=== PATIENT | female | born 1960 | race Caucasian/White ===

== ENCOUNTER 2025-02-25 07:06 | Emergency (ER) | payer MEDICAID, SELFPAY ==
--- NOTE | 2025-02-25 07:12 | EKG_ITS ---
[facility] Test Date: 2025-02-25 Pat Name: BRYCE TOMLINSON Department: Room: - Gender: Female Pacs Specialist: : 1960 Requested By: Anam Thomas (JANET) Order Number: [id number] Reading MD: Anam Thomas (AGRICULTURAL TECHNICIAN) Measurements Intervals [place] Rate: 82 P: VA: QRS: -73 QRSD: 114 T: 26 QT: 363 QTc: 424 Interpretive Statements SUPRAVENTRICULAR RHYTHM LEFT ANTERIOR FASCICULAR BLOCK [QRS AXIS <= -45, QR IN I, RS IN II] VOLTAGE CRITERIA FOR LVH [MEETS CRITERIA IN ONE OF: R(aVL), S(V1), R(V5), R(V5/V6)+S(V1)] POSSIBLE ANTEROSEPTAL MYOCARDIAL INFARCTION , OF INDETERMINATE AGE [30 ms Q WAVE IN V1-V4] Compared to ECG 08/23/2022 18:45:32 Supraventricular rhythm now present Sinus rhythm no longer present First degree AV block no longer present Myocardial infarct finding still present /store/S0/[id number].pdf
[2025-02-25 07:21] VITALS: BP 124/73; PULSE 84; RESP 18; TEMP 36.6; O2SAT 99; BMI 25.0
--- NOTE | 2025-02-25 07:32 | XR_ITS ---
EXAMINATION: AP chest single view TECHNIQUE: AP portable upright chest single view Date and time: February 25, 2025, 0754 hours INDICATIONS: Chest pain dizziness diaphoresis today FINDINGS: Normal heart size Mild ectasia thoracic aorta. No pneumonia or pulmonary edema. Prominent osteopenia IMPRESSION: No pneumonia or pulmonary edema
[2025-02-25 07:50] VITALS: PULSE 70
[2025-02-25 08:10] LABS: Basophils # (Auto) 0.0 Thou/mm3 (0.0-0.2); Basophils % (Auto) 0 % (0-2.5); Eosinophils # (Auto) 0.1 Thou/mm3 (0.0-0.5); Eosinophils % (Auto) 2 % (0-10); Hematocrit 51.4 % (36.0-46.0); Hemoglobin 17.8 g/dL (12.0-16.0); Immature Granulocytes Auto 0.02 Thou/mm3 (0.00-0.00); Lymphocytes # (Auto) 1.7 Thou/mm3 (1.0-4.8); Lymphocytes % (Auto) 26 % (10-50); Mean Corpuscular HGB Conc 34.6 g/dl (31.0-37.0); Mean Corpuscular Hemoglobin 30.6 pg (25.0-35.0); Mean Corpuscular Volume 89 fL (80-100); Monocytes # (Auto) 0.4 Thou/mm3 (0.0-0.8); Monocytes % (Auto) 5 % (0-12); Neutrophils # (Auto) 4.5 Thou/mm3 (1.8-7.7); Neutrophils % (Auto) 67 % (37-80); Nucleated Red Blood Cell # 0.00 Thou/mm3 (0.00-0.00); Nucleated Red Blood Cell % 0 /100 WBC (0); Platelet Count 177 Thou/mm3 (140-440); RDW Standard Deviation 39.8 fL (36.4-46.3); Red Blood Count 5.81 Miln/mm3 (4.00-5.20); White Blood Count 6.7 Thou/mm3 (3.6-11.0)
[2025-02-25 09:08] LABS: INR 1.0 (0.9-1.3); Partial Thromboplastin Time 28.8 Seconds (22.0-36.0); Prothrombin Time 10.7 Seconds (9.0-12.2)
[2025-02-25 09:26] LABS: B-Type Natriuretic Peptide 46 pg/mL (0-100)
[2025-02-25 09:27] LABS: Alanine Aminotransferase 36 U/L (10-49); Albumin, Serum 4.8 gm/dL (3.4-4.8); Albumin/Globulin Ratio 1.5 (1.2-2.2); Alkaline Phosphatase 79 U/L (46-116); Anion Gap 11 (7-16); Aspartate Amino Transferase 34 U/L (0-34); BUN/Creatinine Ratio 11 Ratio (12-20); Bilirubin,Total 0.6 mg/dL (0.3-1.2); Blood Urea Nitrogen 15 mg/dL (9-23); Calcium 9.9 mg/dL (8.3-10.6); Calcium (Corrected) 9.9 mg/dL (8.5-10.1); Carbon Dioxide 27.4 mMol/L (20.0-31.0); Chloride 104 mMol/L (98-107); Creatinine (Component) 1.4 mg/dL (0.6-1.3); Estimated Creatinine Clearance 40.4 mL/min (>60); Globulin 3.2 gm/dL (2.3-3.5); Glucose 228 mg/dL (74-106); Magnesium 2.0 mg/dL (1.6-2.6); Osmolality,Calculated 290 (275-295); Potassium 4.1 mMol/L (3.4-5.1); Sodium 142 mMol/L (136-145); Total Protein 8.0 gm/dL (5.7-8.2); Troponin I < 0.020 ng/mL (0.0-0.045); eGFR 42 See Note
[2025-02-25 10:14] VITALS: BP 151/94; PULSE 65; RESP 16; TEMP 37.1; O2SAT 97
--- NOTE | 2025-02-25 11:16 | EDNOTE_ITS ---
ED Dizzyness RME/HPI General Chief Complaint: Dizziness Stated Complaint: Dizziness at work, sweating, chest pain Time Seen by Provider: 02/25/25 08:04 Arrival date/time: 02/25/25 07:06 Limitations: no limitations RME / HPI RME / HPI Narrative: 64 year old female with history of diabetes presents to the ED BIBA from work for evaluation of near syncopal episode today. Patient states she was working when she suddenly became diaphoretic, globally weak, and dizzy. During that time has transient episode of chest pain. States she felt she was going to lose consciousness and called EMS. No other associated symptoms reported. Denies fevers, chills, cough, shortness of breath, abdominal pain, n/v/d, or urinary symptoms. Denies focal weakness, change in speech or vision. Reportedly has experienced similar episodes before and cause unknown. Related Data Previous Rx's ?Medication ?Instructions ?Recorded ciprofloxacin HCl 500 mg tablet 500 mg PO BID #14 tabs 06/23/22 metformin 500 mg tablet 500 mg PO BID #30 tabs 06/23 Allergies Allergy/AdvReac Type Severity Reaction Status Date / Time No Known Allergies Allergy Verified 02/25/25 07:11 Review of Systems Review of Systems Systems Reviewed: All systems reviewed, normal except as documented Past Medical History Past Medical History ENDOCRINE: Positive Diabetes Mellitus Type 2 Social History SMOKING STATUS: Current every day smoker ED Exam General Limitations: Present no limitations General appearance: Present alert and in no apparent distress Head Head exam: Present atraumatic, normocephalic and normal inspection Eye Eye exam: Present normal appearance, PERRL and EOMI ENT ENT exam: Present normal exam, normal oropharynx and mucous membranes moist Neck Neck exam: Present normal inspection, full ROM and trachea midline Chest Chest inspection: Present normal inspection and symmetric chest wall rise Respiratory Respiratory exam: Present normal lung sounds bilaterally Cardiovascular Cardiovascular exam: Present regular rate, normal rhythm and normal heart sounds Abdominal Exam Abdominal exam: Present soft and normal bowel sounds Extremities Exam Extremities exam: Present normal inspection and full ROM Back Exam Back exam: Present normal inspection and full ROM Neurological Exam Neurological exam: Present alert, oriented X3 and CN II-XII intact Psychiatric Psychiatric exam: Present normal affect and normal mood Skin Skin exam: Present warm, dry, intact and normal color Course Quality Measures none Orders Category Date Time Status Community Service Technician NOW Care 02/25/25 07:32 Active EKG (ED ONLY) *Do not use* NOW Care 02/25/25 07:12 Completed Insert IV NOW Care 02/25/25 07:49 Active EKG (ED Only) Stat Exams 02/25/25 07:12 Ordered XR chest 1V portable Stat Exams 02/25/25 07:32 Completed B-Type Natriuretic Peptide Stat Lab 02/25/25 08:45 Completed CBC Stat Lab 02/25/25 07:45 Completed Comprehensive Metabolic Panel Stat Lab 02/25/25 08:45 Completed Magnesium Stat Lab 02/25/25 08:45 Completed Partial Thromboplastin Time Stat Lab 02/25/25 07:45 Completed Prothrombin Time with INR Stat Lab 02/25/25 07:45 Completed Troponin I Stat Lab 02/25/25 08:45 Completed Vital Signs Vital signs: Vital Signs Temperature 97.8 F 02/25/25 07:21 Pulse Rate 84 02/25/25 07:21 Respiratory Rate 18 02/25/25 07:21 Blood Pressure 124/73 02/25/25 07:21 Pulse Oximetry (%) 99 02/25/25 07:21 Oxygen Delivery Method Room Air 02/25/25 07:21 Pulse ox is 99% on room air which is adequate. Dizziness MDM Narrative MDM Narrative:: Keerthi Palumbo am scribing for and in the presence of Dr. Anne. Patient remains clinically stable throughout the emergency department visit. We reviewed all the results, analysis, and treatment plans. Patient is amenable to discharge. Strict return precautions were outlined. Patient data External records reviewed:: [facility] previous records and EMS form Clinical information provided by:: patient and EMS Social determinants that could affect healthcare access:: none Patient has the following chronic illnesses:: Diabetes How is presenting disease/condition affected by chronic disease/condition?: exacerbated by Evaluation data The following diagnostics were reviewed and interpreted by me:: lab results, radiology exam(s) and EKG tracing(s) (EKG @ 07:23 AM. supraventricular rhythm, rate 82, left anterior fascicular block, no STEMI. ) Lab and/or radiology exams considered but not ordered:: None Interpretation Summary: Ordering Physician: Anam Thomas NP, NP Date of Service: 02/25/25 Procedure(s): XR chest 1V portable Accession Number(s): [id number] cc: Martha (ENTERPRISE ACCOUNT MANAGER),Anam GONZALES; Wayne Johnson MD; Roosevelt Barr MD~ EXAMINATION: AP chest single view TECHNIQUE: AP portable upright chest single view Date and time: February 25, 2025, 0754 hours INDICATIONS: Chest pain dizziness diaphoresis today FINDINGS: Normal heart size Mild ectasia thoracic aorta. No pneumonia or pulmonary edema. Prominent osteopenia IMPRESSION: No pneumonia or pulmonary edema Dictated By: Roosevelt Barr MD Signed By: <Electronically signed by Roosevelt Barr MD in OV> 02/25/25 0851 Medications / Prescriptions Medications or Prescriptions considered but not ordered:: None Medication administrations:: None Consultations Consultation(s) initiated? (list below): No Diagnosis Most likely diagnosis given after review of the tests above:: Vasovagal episode Diabetes Near syncope Admission Indicated Admission indicated?: not indicated Admission Request Was there a request for admission?: No Disposition Plan Disposition Plan: Discharge Discharge Attestation Discharge Attestation: The patient and all family members were given an opportunity to ask questions and understood the discharge instructions. Discharge instructions specifically effects, indications for sooner follow up or return to the emergency department, and the expected course of current diagnosis. Patient condition: Stable Discharge Plan Plan Patient Disposition: HOME (Self Care) Patient condition on transfer: Stable Prescriptions/Referrals Prescriptions/Med Rec: No Action metformin 500 mg tablet 500 mg PO BID Qty: 30 1RF ciprofloxacin HCl 500 mg tablet 500 mg PO BID Qty: 14 0RF Referrals: Wayne Johnson MD [Primary Care Provider, Family Practice] - In 1 week Problem List Clinical Impression: Vasovagal episode, Diabetes mellitus Patient/Caregiver Discharge Instructions Discharge Activity: activity as tolerated Education Materials: Causes of Syncope, Diabetes Exercise Get Started, ED Near-Fainting- Vagal Reaction Additional Instructions: Rest for the next day. You may return to work on Friday without restrictions. Follow-up with your primary care doctor next week. Increase your fluids as you are mildly dehydrated. Please take your medications for your diabetes and check your blood sugars in the morning. Print Language: Andorran Stand Alone Forms: [employer] Award Info., Patient Portal Info Letter
[2025-02-25 11:45] VITALS: BP 153/99; PULSE 72; RESP 16; TEMP 37.3; O2SAT 99
== END 2025-02-25 11:46 | disposition home or self-care (01) ==
PROVIDERS: Nurse Practitioner Primary Care; Emergency Provider Family Medicine; PCP Family Medicine
DX: R55 Syncope and collapse (principal); E11.9 Type 2 diabetes mellitus without complications; Z79.84 Long term (current) use of oral hypoglycemic drugs
CPT/HCPCS: 36415; 71045; 80053; 83735; 83880; 84484; 85025; 85610; 85730; 93005; 99283